=== PATIENT | female | born 1955 | race Caucasian/White ===

== ENCOUNTER 2020-12-07 11:34 | Emergency (ER) | payer MEDICARE ==
[~2020-12-07] VITALS: Ht 165.1 cm; Wt 64.3 kg
[2020-12-07] MEDS ORDERED: ASPIRIN 81 MG CHEW TABLET PO ONE (13:05)
[2020-12-07 13:35] LABS: BASO # 0.1 10^3/uL (0.0-0.2); BASO % 0.8 % (0.0-1.0); EOS # 0.1 10^3/uL (0.0-0.5); EOS % 1.3 % (0.0-3.0); HEMOGLOBIN 14.3 g/dl (12.0-15.5); LYMPH # 3.7 10^3/uL (1.5-5.0); LYMPH % 34.5 % (24.0-44.0); MEAN CORPUSCULAR HEMOGLOBIN 29.9 pg (27.0-33.0); MEAN CORPUSCULAR HGB CONC 32.5 g/dl (32.0-36.5); MEAN CORPUSCULAR VOLUME 91.9 fl (80.0-96.0); MONO # 0.8 10^3/uL (0.0-0.8); MONO % 7.1 % (2.0-8.0); NEUTROPHILS # 5.9 10^3/uL (1.5-8.5); PLATELET COUNT, AUTOMATED 309 10^3/uL (150-450); RED BLOOD COUNT 4.79 10^6/uL (4.00-5.40); WHITE BLOOD COUNT 10.6 10^3/uL (4.0-10.0)
--- NOTE | 2020-12-07 13:40 | REP ---
INDICATION: CHEST PAIN COMPARISON: None. TECHNIQUE: Portable AP view of the chest FINDINGS: The mediastinum and cardiac silhouette are within normal limits for portable technique. The lung cho are clear without acute consolidation, effusion, or pneumothorax. Skeletal structures are intact. IMPRESSION: No acute cardiopulmonary process appreciated. <Electronically signed by Dakota Leone > 12/07/20 [id number]
[2020-12-07 13:47] LABS: INR 0.86; PROTHROMBIN TIME 11.9 SECONDS (12.5-14.3)
[2020-12-07 14:01] LABS: ALBUMIN 3.6 GM/DL (3.2-5.2); ALT/SGPT 19 U/L (12-78); BILIRUBIN,DIRECT < 0.1 MG/DL (0.0-0.2); BILIRUBIN,TOTAL 0.3 MG/DL (0.2-1.0); BLOOD UREA NITROGEN 12 MG/DL (7-18); CALCIUM LEVEL 9.2 MG/DL (8.8-10.2); CARBON DIOXIDE LEVEL 26 MEQ/L (21-32); CHLORIDE LEVEL 106 MEQ/L (98-107); CK-MB VALUE MASS < 1.0 NG/ML (<3.6); CPK CREATINE PHOSPHOKINASE 161 U/L (26-192); CREATININE FOR GFR 0.52 MG/DL (0.55-1.30); GLOMERULAR FILTRATION RATE > 60.0 (>45); GLUCOSE, FASTING 79 MG/DL (70-100); MB/CK RELATIVE INDEX 0.62 (< OR =4); POTASSIUM SERUM 3.7 MEQ/L (3.5-5.1); SODIUM LEVEL 140 MEQ/L (136-145); TOTAL PROTEIN 6.8 GM/DL (6.4-8.2); TROPONIN I < 0.02 NG/ML (< 0.10)
[2020-12-07] MEDS ORDERED: ALBU8.5H INH (14:22)
[2020-12-07] MEDS ORDERED: LISI20TA33 PO ×2 (14:22→14:52)
[2020-12-07] MEDS ORDERED: [UNRECOGNIZED DRUG - OTHER] PO (14:22)
[2020-12-07] MEDS ORDERED: BUSP5TA PO ×2 (14:22→14:52)
[2020-12-07 14:30] VITALS: BP 133/77
[2020-12-07] MEDS ORDERED: PROAAER10 INH (14:52)
[2020-12-07] MEDS ORDERED: ADDE20TA PO (14:55)
--- NOTE | 2020-12-08 20:01 | ECGEPIP ---
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
== END 2020-12-07 15:43 | disposition home or self-care (01) ==
LOC: M ED 11:34
DX: R07.89 Other chest pain (principal); I10 Essential (primary) hypertension; J44.9 Chronic obstructive pulmonary disease, unspecified; Z79.899 Other long term (current) drug therapy; Z88.5 Allergy status to narcotic agent; Z82.49 Family history of ischemic heart disease and other diseases of the circulatory system

== ENCOUNTER 2020-12-17 07:22 | Emergency (ER) | payer MEDICARE, SELFPAY ==
[~2020-12-17] VITALS: Ht 165.1 cm; Wt 63.6 kg
[~2020-12-17 07:22] MED LIST: ADDE20TA PO; ALBU8.5H INH; BUSP5TA PO; LISI20TA33 PO; PROAAER10 INH; [UNRECOGNIZED DRUG - OTHER] PO
[2020-12-17] MEDS ORDERED: PRAV10TA3 PO ×2 (07:44→08:20)
[2020-12-17] MEDS ORDERED: SYMB80INH INH ×2 (07:44→08:20)
[2020-12-17] MEDS ORDERED: BUSP5TA PO (08:20)
[2020-12-17] MEDS ORDERED: LISI20TA33 PO (08:20)
[2020-12-17] MEDS ORDERED: AMPH1CAP16 PO (08:25)
[2020-12-17 08:35] VITALS: BP 169/79
== END 2020-12-17 08:41 | disposition home or self-care (01) ==
LOC: M ED 07:22
DX: Z76.0 Encounter for issue of repeat prescription (principal); G89.29 Other chronic pain; M54.5 Low back pain; F17.200 Nicotine dependence, unspecified, uncomplicated; Z88.6 Allergy status to analgesic agent; Z79.899 Other long term (current) drug therapy

== ENCOUNTER 2020-12-21 10:09 | Emergency (ER) | payer MEDICARE ==
[~2020-12-21] VITALS: Ht 165.1 cm; Wt 63.6 kg
[2020-12-21 10:09] VITALS: BP 193/91
== END 2020-12-21 11:27 | disposition left against medical advice (07) ==
LOC: M ED 10:09
DX: Z53.21 Procedure and treatment not carried out due to patient leaving prior to being seen by health care provider (principal)

== ENCOUNTER → 2020-12-21 | Outpatient (CLI) | payer MEDICARE ==
[~2020-12-21] MED LIST changes: +AMPH1CAP16 PO; +PRAV10TA3 PO; +SYMB80INH INH
--- NOTE | 2020-12-21 15:37 | REP ---
INDICATION: PAIN IN RT KNEE. COMPARISON: None. TECHNIQUE: Standing AP view bilateral knees, additional lateral and sunrise views right knee. FINDINGS: There is no fracture or dislocation. There is evidence of prior ACL repair on the right with a femoral and tibial tunnel noted. There is moderately severe lateral joint space narrowing on the right with subchondral sclerosis and spurring. There is mild narrowing of the medial joint space on the left and more moderate degree of narrowing of the lateral joint space with mild spurring. There is also diffuse chondrocalcinosis in both the mediolateral compartments on the left. There is mild diffuse patellar spurring on the right. There is a mild to moderate suprapatellar effusion on the right. IMPRESSION: Degenerative changes as above. <Electronically signed by Isacc Parker > 12/21/20 [id number]
--- NOTE | 2020-12-21 15:49 | REP ---
INDICATION: PAIN IN RT KNEE. COMPARISON: None. TECHNIQUE: Four views of the right calf are presented. FINDINGS: There is diffuse osteoporosis. Patient is status post anterior cruciate ligament repair. The there is moderate osteoarthritis in the medial and lateral compartment with reactive sclerosis and spur formation at the knee. Tibiotalar articulation is unremarkable. No tibial or fibular fracture is seen. No bony destructive lesion is noted. IMPRESSION: Osteoarthritis at the knee and status post ACL repair. Diffuse osteopenia. <Electronically signed by Modesto Pagan > 12/21/20 1999
== END ==
LOC: M SOG 14:23
PROVIDERS: ATTEND Orthopaedic Surgery Adult Reconstructive Orthopaedic Surgery
DX: M25.561 Pain in right knee (principal)